=== PATIENT | male | born 1990 | race Two or more races ===

== ENCOUNTER 2021-12-06 12:35 | Emergency (ER) | payer MEDICARE ==
[~2021-12-06] VITALS: Ht 175.3 cm; Wt 86.2 kg
[2021-12-06] MEDS ORDERED: HYDR-3972 PO (13:44)
--- NOTE | 2021-12-06 13:56 | NUR ---
Patient discharged to home in stable condition. Written and verbal after care instructions given. Patient verbalizes understanding of instructions. Stressed follow up or return to ER for worsening s/s.
== END 2021-12-06 13:56 | disposition home or self-care (01) ==
LOC: ER 12:35
DX: S47.1XXA Crushing injury of right shoulder and upper arm, initial encounter (principal); W23.0XXA Caught, crushed, jammed, or pinched between moving objects, initial encounter; Y93.89 Activity, other specified; Y92.89 Other specified places as the place of occurrence of the external cause
CPT/HCPCS: 73030; A4663